=== PATIENT | male | born 1965 | race African-American/Black ===

== ENCOUNTER 2016-09-01 22:03 | Emergency (ER) | payer BC ==
[~2016-09-01] VITALS: Ht 175.3 cm; Wt 90.7 kg
[2016-09-01 22:24] VITALS: BP 126/89
[2016-09-01] MEDS ORDERED: NORFLEX100 MG PO (22:54)
[2016-09-01] MEDS ORDERED: NAPROSYN500 MG PO (22:54)
== END 2016-09-01 22:56 | disposition home or self-care (01) ==
LOC: ER 22:03
DX: S16.1XXA Strain of muscle, fascia and tendon at neck level, initial encounter (principal); S39.012A Strain of muscle, fascia and tendon of lower back, initial encounter; V89.2XXA Person injured in unspecified motor-vehicle accident, traffic, initial encounter; Y93.89 Activity, other specified; Y92.89 Other specified places as the place of occurrence of the external cause; Y99.8 Other external cause status